=== PATIENT | male | born 1990 | race Asian ===

== ENCOUNTER 2023-09-28 14:10 | Emergency (ER) | payer SELFPAY ==
[~2023-09-28] VITALS: Ht 175.3 cm; Wt 70.0 kg
[2023-09-28 14:17] VITALS: O2SAT 99
[2023-09-28] MEDS ORDERED: SODIUM CHLORIDE 0.9% 1,000 ML IV ONE (14:30)
[2023-09-28 14:57] LABS: BASOPHILS % 0.3 % (0.0-2.0); EOSINOPHILS % 1.5 % (0.0-5.0); HEMATOCRIT. 39.3 % (42.0-52.0); HEMOGLOBIN. 13.1 g/dL (14.0-18.0); LYMPHOCYTES % 39.1 % (20.0-50.0); MEAN CORPUSCULAR HEMOGLOBIN 30.4 pg (28.0-32.0); MEAN CORPUSCULAR HGB CONC 33.3 g/dL (31.0-37.0); MEAN CORPUSCULAR VOLUME 91.2 fL (80.0-94.0); MEAN PLATELET VOLUME 6.8 fl (7.4-10.4); NEUTROPHILS % 52.1 % (40.0-76.0); PLATELET 185 x1000/uL (130-400); RED BLOOD CELL COUNT 4.31 mill/uL (4.7-6.1); WHITE BLOOD COUNT 2.8 x1000/uL (4.5-11.0)
[2023-09-28 15:17] LABS: ALANINE AMINOTRANSFERASE 51 IU/L (10-49); ALBUMIN 3.6 g/dL (3.2-4.8); ASPARTATE AMINOTRANSFERASE 22 IU/L (<34); BILIRUBIN TOTAL 0.7 mg/dL (0.1-1.0); CALCIUM 8.6 mg/dL (8.7-10.4); CARBON DIOXIDE 26 mEq/L (21-32); CHLORIDE 109 mEq/L (98-107); CREATININE 0.8 mg/dL (0.6-1.3); GLUCOSE 99 mg/dL (70-105); PROTEIN TOTAL 6.4 g/dL (6.0-8.3); SODIUM 142 mEq/L (136-145); UREA NITROGEN BLOOD 15 mg/dL (9-23)
[2023-09-28 15:37] LABS: TROPONIN I HIGH SENSITIVITY < 4 ng/L (3.0-53)
[2023-09-28] MEDS ORDERED: CALCIUM 1250MG TABLET (500MG ELEMENTAL CALCIUM) PO ONE (16:00)
[2023-09-28 16:09] VITALS: BP 110/78; PULSE 68; RESP 17; TEMP 98.4
== END 2023-09-28 16:11 | disposition home or self-care (01) ==
LOC: ER 14:22
DX: T73.0XXA Starvation, initial encounter (principal); E83.51 Hypocalcemia; Z59.01 Sheltered homelessness; X58.XXXA Exposure to other specified factors, initial encounter
CPT/HCPCS: 80053; 85025; 84484; 36415; 71045; 93005; 96360; 99285; J7030; Z7610